=== PATIENT | female | born 1995 | race Caucasian/White ===

== ENCOUNTER → 2024-09-17 | Outpatient (CLI) | payer OTHER ==
[~2024-09-17] MED LIST: CEFADROXIL500 MG PO; PRENATAL CAPLE1 EACH PO; PYRIDIUM DS200 MG PO
== END | disposition home or self-care (01) ==
LOC: NST 13:03
PROVIDERS: ATTEND Specialist
DX: Z34.83 Encounter for supervision of other normal pregnancy, third trimester (principal)

== ENCOUNTER 2024-11-10 12:36 | Inpatient (IN) | payer OTHER ==
[~2024-11-10] VITALS: Ht 157.5 cm; Wt 92.5 kg
[2024-11-10 12:59] VITALS: BP 120/79
[2024-11-10 14:17] LABS: BASO % 0.1 % (0.1-1.2); EOS # 0.13 (0.04-0.54); EOS % 1.5 % (0.7-7.0); HEMATOCRIT 27.1 % (34.1-44.9); HEMOGLOBIN 9.5 g/dL (11.2-15.7); LYMPH % 20.9 % (19.3-53.1); MEAN CORPUSCULAR HEMOGLOBIN 27.1 pg (25.6-32.2); MONO # 0.43 (0.24-0.82); NEUT # 6.16 (1.56-6.13); NEUT % 71.7 % (34.0-71.1); PLATELET COUNT 330 K/uL (163-369); RED CELL DISTRIBUTION WIDTH 13.6 % (11.6-14.4)
[2024-11-10 14:18] LABS: URINE APPEARANCE Clear; URINE BILIRRUBIN Negative (NEGATIVE); URINE BLOOD Negative; URINE COLOR Yellow; URINE GLUCOSE Negative (NEGATIVE); URINE KETONE 15 (NEGATIVE); URINE LEUKOCYTE Negative; URINE NITRATE Negative; URINE PROTEIN Negative (NEGATIVE); URINE UROBILINOGEN 0.2 E.U./dl
[2024-11-10 14:19] LABS: URINE BACTERIA 141.9 uL (0.0-1933); URINE EPITHELIAL CELLS 5.3 uL (0.0-38.8); URINE WBC 3.9 uL (0.0-23.2)
[2024-11-10 14:38] LABS: URINE CAST 0.29 uL (0.0-1.40); URINE RBC 0.8 uL (0.0-20.8)
[2024-11-10 14:44] LABS: ALBUMIN 2.4 gm/dL (3.4-5.0); BILIRUBIN TOTAL 0.22 mg/dL (0.3-1.2); CALCIUM 8.1 mg/dL (8.5-10.1); CREATININE SERUM 0.54 mg/dL (0.55-1.02); GFR 132.56; GLOBULINA 3.3 G/DL (2.4-3.5); POTASSIUM 3.53 mEq/L (3.5-5.1); TOTAL PROTEIN 5.7 gm/dL (6.4-8.2)
[2024-11-10 14:53] LABS: INR 0.96; PARTIAL THROMBOPLASTIN TIME 26.2 SECONDS (22.0-34.0); PROTHROMBIN TIME 10.5 SECONDS (9.0-11.5)
[2024-11-10 15:06] VITALS: BP 106/69
[2024-11-10] MEDS ORDERED: METHYLPREDNISOLONE SOD SUCC 125 MG VIAL IV ONE ×2 (15:15→15:30)
[2024-11-10] MEDS ORDERED: RINGERS SOLUTION,LACTATED 1,000 ML IV SCH (15:45)
[2024-11-10] MEDS ORDERED: NIFEDIPINE20 MG PO (17:52)
[2024-11-10] MEDS ORDERED: METHYLPREDNISOLONE SOD SUCC 125 MG VIAL ONE (18:25)
[2024-11-10 18:46] VITALS: BP 108/70
[2024-11-10] MEDS ORDERED: TERBUTALINE SULFATE 1 MG/ML AMPUL ONE (20:55)
[2024-11-10] MEDS ORDERED: TERBUTALINE SULFATE 1 MG/ML AMPUL SUBCUTANEO SCH (21:05)
[2024-11-10] MEDS ORDERED: hydrOXYzine PAMOATE 50 MG CAPSULE PO ONE (21:15)
[2024-11-10 23:27] VITALS: BP 113/67
[2024-11-11 03:32] VITALS: BP 116/69
[2024-11-11 06:29] VITALS: BP 120/72; O2SAT 98
[2024-11-11 06:35] LABS: BASO % 0.2 % (0.1-1.2); HEMATOCRIT 31.7 % (34.1-44.9); HEMOGLOBIN 10.8 g/dL (11.2-15.7); LYMPH # 1.36 (1.18-3.74); LYMPH % 12.2 % (19.3-53.1); MEAN CORPUSCULAR HEMOGLOBIN 26.6 pg (25.6-32.2); MONO # 0.37 (0.24-0.82); MONO % 3.3 % (4.7-12.5); NEUT # 9.34 (1.56-6.13); NEUT % 83.6 % (34.0-71.1); PLATELET COUNT 246 K/uL (163-369); RED BLOOD COUNT 4.06 M/uL (3.93-5.22); RED CELL DISTRIBUTION WIDTH 13.7 % (11.6-14.4)
[2024-11-11] MEDS ORDERED: CARBOPROST TROMETHAMINE 250 MCG/ML AMPUL IM ONE (08:17)
[2024-11-11] MEDS ORDERED: CEFAZOLIN SODIUM 1,000 MG VIAL ONE (08:23)
[2024-11-11] MEDS ORDERED: KETOROLAC TROMETHAMINE 60 MG VIAL IM PRN (10:15)
[2024-11-11] MEDS ORDERED: OXYTOCIN 10 UNITS/ML VIAL IV ONE (10:15)
[2024-11-11] MEDS ORDERED: ERYTHROMYCIN BASE OPHT 1GM EACH TUBE OP ONE (10:15)
[2024-11-11] MEDS ORDERED: MEPERIDINE HCL/PF 25 MG/ML VIAL IM SCH (10:15)
[2024-11-11] MEDS ORDERED: MORPHINE SULFATE 4 MG/ML VIAL IV ONE (10:15)
[2024-11-11] MEDS ORDERED: KETOROLAC TROMETHAMINE 60 MG VIAL IM ONE (10:50)
[2024-11-11] MEDS ORDERED: PROMETHAZINE HCL 50 MG/ML AMPUL IV SCH (12:00)
[2024-11-11] MEDS ORDERED: CEFAZOLIN SODIUM 1,000 MG VIAL IV SCH (12:00)
[2024-11-11 13:36] VITALS: BP 118/77
[2024-11-11] MEDS ORDERED: MORPHINE SULFATE 4 MG/ML VIAL IV SCH (13:45)
[2024-11-11 16:38] VITALS: BP 102/65
[2024-11-12] VITALS: BP 108/67
[2024-11-12 07:46] LABS: BASO % 0.2 % (0.1-1.2); EOS # 0.09 (0.04-0.54); HEMATOCRIT 28.9 % (34.1-44.9); HEMOGLOBIN 9.7 g/dL (11.2-15.7); LYMPH # 1.37 (1.18-3.74); LYMPH % 14.7 % (19.3-53.1); MEAN CORPUSCULAR HEMOGLOBIN 26.6 pg (25.6-32.2); MONO # 0.83 (0.24-0.82); MONO % 8.9 % (4.7-12.5); NEUT % 74.8 % (34.0-71.1); PLATELET COUNT 228 K/uL (163-369); RED BLOOD COUNT 3.64 M/uL (3.93-5.22); RED CELL DISTRIBUTION WIDTH 14.4 % (11.6-14.4)
[2024-11-12] MEDS ORDERED: NAPROXEN 500 MG TABLET PO SCH (09:00)
[2024-11-12 09:02] VITALS: BP 118/74
[2024-11-12] MEDS ORDERED: IRON FUM,PS/FOLIC/BCOMP,C NO.9 1 CAP CAPSULE PO STA (10:21)
[2024-11-12] MEDS ORDERED: IRON FUM,PS/FOLIC/BCOMP,C NO.9 1 CAP CAPSULE PO SCH (17:00)
[2024-11-13 01:25] VITALS: BP 109/72
[2024-11-13 07:51] LABS: BASO % 0.3 % (0.1-1.2); EOS # 0.18 (0.04-0.54); EOS % 2.4 % (0.7-7.0); HEMATOCRIT 31.1 % (34.1-44.9); HEMOGLOBIN 10.3 g/dL (11.2-15.7); LYMPH # 1.74 (1.18-3.74); LYMPH % 23.4 % (19.3-53.1); MONO # 0.68 (0.24-0.82); MONO % 9.1 % (4.7-12.5); NEUT # 4.77 (1.56-6.13); NEUT % 64.1 % (34.0-71.1); PLATELET COUNT 254 K/uL (163-369); RED BLOOD COUNT 3.82 M/uL (3.93-5.22); RED CELL DISTRIBUTION WIDTH 14.8 % (11.6-14.4)
[2024-11-13 08:50] VITALS: BP 111/72
[2024-11-13] MEDS ORDERED: IRON FUM,PS/FOLIC/BCOMP,C NO.9 1 CAP CAPSULE PO SCH (17:00)
== END 2024-11-13 12:06 | disposition home or self-care (01) | DRG 788 ==
LOC: LDR 12:36 → O/R 11-11 08:28 → OB/GYN 11-11 12:24
PROVIDERS: ADMIT Specialist; ATTEND Specialist
PROC: 4A1HXCZ Monitoring of Products of Conception, Cardiac Rate, External Approach (ICD-10-PCS; 2024-11-10)
PROC: 10D00Z1 Extraction of Products of Conception, Low, Open Approach (ICD-10-PCS; principal; 2024-11-11 07:15)
DX: O60.14X0 Preterm labor third trimester with preterm delivery third trimester, not applicable or unspecified (principal); O34.211 Maternal care for low transverse scar from previous cesarean delivery; Z3A.36 36 weeks gestation of pregnancy; Z37.0 Single live birth